=== PATIENT | female | born 1930 | race Caucasian/White ===

== ENCOUNTER → 2019-02-22 | Outpatient (CLI) | payer MEDICARE, OTHER ==
[~2019-02-22] MED LIST: ATOR20 PO; CYAN1000I IM; ELIQUIS2.5 MG PO; FERR325 PO; FISH1000 PO; FURO40 PO; HYDACE10B PO; HYDR1TAB94 PO; KRILL OIL 1,001 EAC1 PO; KRILL OIL 1,001 EACH PO; Klor-Con 1010 MEQ PO; LOSA25 PO; LOSARTAN; METO25 PO; METO25ER PO; MULVITMIND PO; Multiple Vitam1 EAC1 PO; NAPR375 PO; OMEP10ER; OMEP20ER PO; SUCR1 PO; WARF6 PO; XARELTO20 MG PO
== END | disposition home or self-care (01) ==
LOC: LAB 13:29 → LAB SHORT 13:29
DX: J02.9 Acute pharyngitis, unspecified (principal)
CPT/HCPCS: 87081

== ENCOUNTER 2020-09-19 13:12 | Emergency (ER) | payer MEDICARE, OTHER ==
[~2020-09-19] VITALS: Ht 154.9 cm; Wt 63.5 kg
[2020-09-19] MEDS ORDERED: ELIQUIS2.5 M1 PO (13:34)
[2020-09-19] MEDS ORDERED: METOPROLOL TART25 MG PO (13:34)
[2020-09-19] MEDS ORDERED: LOSARTAN POTASS25 M2 PO (13:34)
== END 2020-09-19 13:53 | disposition home or self-care (01) ==
LOC: ER 13:12
DX: S81.811A Laceration without foreign body, right lower leg, initial encounter (principal); I48.91 Unspecified atrial fibrillation; E78.5 Hyperlipidemia, unspecified; I10 Essential (primary) hypertension; Z88.1 Allergy status to other antibiotic agents; Z79.01 Long term (current) use of anticoagulants; Z79.899 Other long term (current) drug therapy; Z87.891 Personal history of nicotine dependence; W26.8XXA Contact with other sharp object(s), not elsewhere classified, initial encounter
CPT/HCPCS: 12002; 99282-25